=== PATIENT | male | born 1995 | race African-American/Black ===

== ENCOUNTER 2021-03-13 13:30 | Emergency (ER) | payer SELFPAY ==
[~2021-03-13] VITALS: Ht 190.5 cm; Wt 136.1 kg
--- NOTE | 2021-03-13 13:41 | NUR ---
BIB [id number] From "Headache started yesterday reminds me of migraine +N/V". Rates pain 9/10. In room air and denies SOB. Respiration regular and unlabored. Will continue to monitor the patient.
[2021-03-13] MEDS ORDERED: KETOROLAC TROMETHAMINE INJ 30 MG/ML VIAL ONE (15:07)
[2021-03-13] MEDS ORDERED: METOCLOPRAMIDE HCL 10 MG/2 ML VIAL ONE (15:07)
[2021-03-13] MEDS: METOCLOPRAMIDE HCL 10 MG/2 ML VIAL IV ONE (15:16)
[2021-03-13] MEDS: KETOROLAC TROMETHAMINE INJ 30 MG/ML VIAL IV ONE (15:18)
[2021-03-13] MEDS: IV NS 0.9% 1,000 ML BAG IV ONE (15:20)
[2021-03-13 15:39] VITALS: BP 146/85
--- NOTE | 2021-03-13 15:39 | NUR ---
Patient discharged to home in stable condition. Written and verbal after care instructions given. Patient verbalizes understanding of instruction.
== END 2021-03-13 15:40 | disposition home or self-care (01) ==
LOC: ER 13:34
DX: G43.909 Migraine, unspecified, not intractable, without status migrainosus (principal); R11.2 Nausea with vomiting, unspecified
CPT/HCPCS: 96361; 96374; 96375; 99284; J1885; J2765; J7030